=== PATIENT | male | born 1985 | race American Indian/Alaskan Native ===

== ENCOUNTER 2016-11-28 10:51 | Emergency (ER) | payer OTHER ==
--- NOTE | 2016-11-28 11:00 | Emergency Department Report ---
Chief Complaint: Chest Pain Stated Complaint: DRY COUGH/CHEST DISCOMFORT Time Seen by Provider: 11/28/16 10:55 - HPI History of Present Illness: PT c/o chest discomfort / burning x 4-5 months. PT states the burning in the middle of his chest and radiates up. PT states it has been increasing in intensity and he wanted to have it checked out. pt denies chest pain - ROS Review of Systems: + cough + burning in chest - Exam Physical Exam: PT looks well, non toxic no acute resp distress gcs 15 MSE screening note: Focused history and physical exam performed. Due to findings the following was ordered: ekg, labs, xr ED Disposition for MSE Condition: Stable
[2016-11-28 11:08] VITALS: BP 139/86
[2016-11-28 11:34] LABS: Basophils % (Auto) 0.5 % (0.0-1.8); Eosinophils % (Auto) 1.8 % (0.0-4.3); Hematocrit 42.6 % (35.5-45.6); Mean Corpuscular HGB Conc 33 % (32-34); Mean Corpuscular Hemoglobin 26 pg (28-32); Mean Corpuscular Volume 79 fl (84-94); Platelet Count 325 K/mm3 (140-440); Red Blood Count 5.37 M/mm3 (3.65-5.03); Red Cell Distribution Width 14.3 % (13.2-15.2); White Blood Count 8.4 K/mm3 (4.5-11.0)
[2016-11-28 11:46] LABS: Alanine Aminotransferase 38 units/L (7-56); Albumin 4.1 g/dL (3.9-5); Albumin/Globulin Ratio 1.1 %; Alkaline Phosphatase 63 units/L (35-129); Anion Gap 27 mmol/L; BUN/Creatinine Ratio 6.66; Blood Urea Nitrogen 6 mg/dL (9-20); Calcium 9.5 mg/dL (8.4-10.2); Carbon Dioxide 18 mmol/L (22-30); Glucose 132 mg/dL (75-100); Sodium 141 mmol/L (137-145); Total Protein 7.8 g/dL (6.3-8.2)
--- NOTE | 2016-11-28 11:59 | XRay Report ---
ROUTINE CHEST, TWO VIEWS: History: Chest pain. PA and lateral views demonstrate the heart and mediastinal contour to be of normal size and shape. The lungs are clear and fully expanded and the soft tissues and bony structures are normal. IMPRESSION: Normal study.
--- NOTE | 2016-11-28 13:03 | Emergency Department Report ---
HPI - General Chief Complaint: Upper Respiratory Infection Time Seen by Provider: 11/28/16 10:55 - HPI HPI: Patient here reports that he isn't coughing and with chest congestion and discomfort for months. He denies any chest pain or shortness of breath. He reports some nasal drainage and congestion. Pain is 0 out of 10. Denies any nausea or vomiting. Denies any pain in neck or extremities. Denies any headache. Denies any fever or chills. No [id number] medication use. Patient has no medical problems. ED Past Medical Hx - Past Medical History Previous Medical History?: No - Surgical History Past Surgical History?: No - Family History Family history: no significant - Social History Smoking Status: Never Smoker Substance Use Type: None - Medications Home Medications: Home Medications Medication Instructions Recorded Confirmed Last Taken Type Cetirizine HCl [ZyrTEC] 10 mg PO QDAY #1 capsule 11/28/16 Unknown Rx Fluticasone [Flonase] 1 spray NS QDAY #1 bottle 11/28/16 Unknown Rx ED Review of Systems ROS: Stated complaint: DRY COUGH/CHEST DISCOMFORT Other details as noted in HPI Comment: All other systems reviewed and negative Constitutional: denies: chills, fever ENT: congestion (and runny nose), other (postnasal drip). denies: ear pain, throat pain Respiratory: cough. denies: orthopnea, shortness of breath, SOB with exertion, SOB at rest, stridor, wheezing Cardiovascular: denies: chest pain, palpitations, dyspnea on exertion, edema, syncope Gastrointestinal: denies: abdominal pain, nausea, vomiting Musculoskeletal: denies: back pain, joint swelling, arthralgia, myalgia Skin: denies: rash Neurological: denies: headache, weakness, numbness, paresthesias, confusion, abnormal gait, vertigo Physical Exam - Physical Exam Vital Signs: Vital Signs 11/28/16 11:05 Temperature 98.5 F Pulse Rate 64 Respiratory 18 Rate Blood Pressure 139/86 O2 Sat by Pulse 98 Oximetry General: This is a 31-year-old male well-nourished well-developed in no acute distress.. Physical Exam: Head: Normocephalic atraumatic Ears:BIateral TM congested without erythema. Bilateral EAC without any redness swelling or drainage. Nose: Bilateral nasal mucosa pale and boggy with clear drainage. Maxillary and frontal sinuses nontender to palpate. Eyes: Sclerae / conjunctiva without injection. Bilateral pupils equal and reactive to light. Bilateral lids arevnormal. No nystagmus. Normal accommodation. Lungs: Alvaro Clear to auscultate bilaterally, no rhonchi wheezes or rales. Normal work of breathing and no chest wall tenderness CV: S1, S2. Regular rate and rhythm negative murmur. Capillary refill is less than 3 seconds Skin: Clean dry and intact, no rashes or lesions Psych: Normal mood and behavior ED Course Vital Signs 11/28/16 11:05 Temperature 98.5 F Pulse Rate 64 Respiratory 18 Rate Blood Pressure 139/86 O2 Sat by Pulse 98 Oximetry - Reevaluation(s) Reevaluation #1: 11/28/16 13:26 Stable throughout ED stay ED Medical Decision Making - Lab Data Result diagrams: 11/28/16 11:07 11/28/16 11:07 Lab Results 11/28/16 11/28/16 Range/Units 11:07 11:07 WBC 8.4 (4.5-11.0) K/mm3 RBC 5.37 H (3.65-5.03) M/mm3 Hgb 14.0 (11.8-15.2) gm/dl Hct 42.6 (35.5-45.6) % MCV 79 L (84-94) fl MCH 26 L (28-32) pg MCHC 33 (32-34) % RDW 14.3 (13.2-15.2) % Plt Count 325 (140-440) K/mm3 Lymph % (Auto) 26.5 (13.4-35.0) % [place] % (Auto) 5.0 (0.0-7.3) % Eos % (Auto) 1.8 (0.0-4.3) % Baso % (Auto) 0.5 (0.0-1.8) % Lymph # 2.2 (1.2-5.4) K/mm3 [place] # 0.4 (0.0-0.8) K/mm3 Eos # 0.2 (0.0-0.4) K/mm3 Baso # 0.0 (0.0-0.1) K/mm3 Seg Neutrophils % 66.2 (40.0-70.0) % Seg Neutrophils # 5.5 (1.8-7.7) K/mm3 Sodium 141 (137-145) mmol/L Potassium 4.0 (3.6-5.0) mmol/L Chloride 100.0 (98-107) mmol/L Carbon Dioxide 18 L (22-30) mmol/L Anion Gap 27 mmol/L BUN 6 L (9-20) mg/dL Creatinine 0.9 (0.8-1.5) mg/dL Estimated GFR > 60 ml/min BUN/Creatinine Ratio 6.66 % Glucose 132 H (75-100) mg/dL Calcium 9.5 (8.4-10.2) mg/dL Total Bilirubin 0.80 (0.1-1.2) mg/dL AST 30 (5-40) units/L ALT 38 (7-56) units/L Alkaline Phosphatase 63 (35-129) units/L Troponin T < 0.010 (0.00-0.029) ng/mL Total Protein 7.8 (6.3-8.2) g/dL Albumin 4.1 (3.9-5) g/dL Albumin/Globulin Ratio 1.1 % - Radiology Data Radiology results: report reviewed Chest X-ray revealed no acute cardiopulmonary processes - Medical Decision Making ED course: Patient here reports cough 4-5 months with nasal congestion and drainage. I discussed with patient that his cardiac labs were within normal limits, chest x-ray revealed no acute abnormalities and other lab work were within normal limits. I told him that his blood sugar was mildly elevated but he said he ate before he had labs drawn. EKG normal sinus rhythm at 65 bpm. The patient that he has allergic rhinitis and will be treated with Flonase and Zyrtec and to follow up with his primary care physician in 7-10 days if he does not have one to follow up with outside Medical Center. Voice undescended discharge instruction and treatment plan and discharged home with his family in stable condition Critical care attestation.: If time is entered above; I have spent that time in minutes in the direct care of this critically ill patient, excluding procedure time. ED Disposition Clinical Impression: Cough in adult Allergic rhinitis Qualifiers: Chronicity: acute Allergic rhinitis trigger: unspecified Allergic rhinitis seasonality: unspecified seasonality Qualified Code(s): J30.9 - Allergic rhinitis, unspecified Disposition: DC-01 TO HOME OR SELFCARE Is pt being admited?: No Does the pt Need Aspirin: No Condition: Stable Instructions: Acute Cough (ED), Allergic Rhinitis (ED) Additional Instructions: Please follow up with primary care as recommended Increase fluid intake Take medication as prescribed . Prescriptions: Cetirizine HCl [ZyrTEC] 10 mg PO QDAY #1 capsule Fluticasone [Flonase] 1 spray NS QDAY #1 bottle Referrals: [facility] [Outside] - 7-10 days PRIMARY CARE, [Primary Care Provider] - 7-10 days Forms: Work/School Release Form(ED), Accompanied Note
== END 2016-11-28 13:40 | disposition home or self-care (01) ==
LOC: ED 10:51
DX: J30.9 Allergic rhinitis, unspecified (principal)
CPT/HCPCS: 36415; 71020; 80053; 84484; 85025; 93005; 93010; 99284